=== PATIENT | male | born 1980 | race Caucasian/White ===

== ENCOUNTER 2018-08-10 04:57 | Emergency (ER) | payer BC, SELFPAY ==
[2018-08-10 04:59] VITALS: BP 131/80; PULSE 101; RESP 13; TEMP 36.7; O2SAT 100; BMI 41.5
[2018-08-10 05:03] VITALS: O2SAT 99
--- NOTE | 2018-08-10 05:11 | EKG12_ITS ---
Test Reason : SOB Blood Pressure : / mmHG Vent. Rate : 080 BPM Atrial Rate : 080 BPM P-R Int : 140 ms QRS Dur : 082 ms QT Int : 344 ms P-R-T Axes : 004 -04 037 degrees QTc Int : 396 ms Normal sinus rhythm with sinus arrhythmia Poor R wave progression Confirmed by ELIDIA TA, DEVI ([id number]), staff editor BLANCHE RIVERA ([id number]) on 08/12/2018 1:21:54 PM Referred By: YOAN Confirmed By:DEVI BRENNER MD
--- NOTE | 2018-08-10 05:11 | RAD_ITS ---
STUDY: X-RAY CHEST REASON FOR EXAM: Male, 38 years old. Sudden onset of shortness of breath this morning. TECHNIQUE: PA and lateral chest. COMPARISON: None. FINDINGS: The lungs are clear and expanded. There is no demonstrated pleural abnormality. Normal size heart. Normal mediastinum and joshua. Normal visualized pulmonary arteries. Normal visualized aortic arch and descending thoracic aorta. Normal visualized thoracic spine. Normal visualized ribs, clavicles, and shoulders. There is no demonstrated abnormality of the visualized soft tissue structures of the upper abdomen. RAD/Chest PA and Lateral IMPRESSION: Normal x-ray examination of the chest. Electronically Signed: Justino Xie MD at 5:46 EDT , Service support ,
[2018-08-10 05:30] LABS: Absolute Lymphocyte Count 3.22 X10^3/ul (0.83-4.51); Absolute Neutrophil Count 5.2 X10^3/uL (2.0-7.7); Basophil# 0.02 X10^3/uL; Basophil% 0.2 % (0-1); Eosinophil# 0.16 X10^3/uL; Eosinophils% 1.7 % (0-5); Hematocrit 48.1 % (40-54); Hemoglobin 15.7 g/dl (13.0-16.5); Lymphocyte # 3.22 X10^3/ul (4.0); Lymphocyte % 33.9 % (19-41); Mean Corp Hgb Conc 32.6 g/gl (32-36); Mean Corpuscular Hgb 28.6 pg (27.0-32.0); Mean Corpuscular Volume 87.8 fL (80-94); Mean Platelet Vol. 11.7 fl (6.2-12.0); Monocyte# 0.88 X10^3/uL; Monocyte% 9.3 % (0-10); Neutrophil # 5.19 X10^3/uL (2.7-7.7); Neutrophil % 54.7 % (47-70); Platelet Count 240 K/mm3 (150-450); RBC Distribution Width CV 13.5 % (11.6-14.6); RBC Distribution Width SD 43.4 fl (35.1-43.9); Red Blood Count 5.48 M/mm3 (4.6-6.2); White Blood Count 9.5 K/mm3 (4.4-11.0)
[2018-08-10 05:32] LABS: POSITIVE COUNT NO; POSITIVE DIFFERENTIAL NO; POSITIVE MORPHOLOGY NO
[2018-08-10 05:35] LABS: Anion Gap 7 (5-15); BUN 19 mg/dL (7-18); BUN/Creat Ratio 17.9 RATIO (10-20); Calcium,Total 9.3 mg/dL (8.5-10.1); Chloride 106 mmol/L (98-107); Creatinine, Serum 1.06 mg/dL (0.70-1.30); EST Glomerular Filtration Rate 82 mL/min (>60); Est Glom Filt Rate - Afr Amer 100 mL/min (>60); Glucose 146 mg/dL (74-106); Potassium 3.9 mmol/L (3.5-5.1); Sodium Level 140 mmol/L (136-145)
--- NOTE | 2018-08-10 05:48 | CT_ITS ---
STUDY: CTA CHEST REASON FOR EXAM: Male, 38 years old. Shortness of breath while driving to work this morning. RADIATION DOSAGE (If Supplied By Facility): CTDIvol = ( 20.05 ) mGy, DLP = ( 676.42 ) mGycm TECHNIQUE: The examination was performed with the intravenous administration of 100ML ml of Isovue 370 contrast material. Post-processing of the angiographic images was performed, with multiplanar reformation and 3D reconstruction. Individualized dose optimization techniques were used for this CT. COMPARISON: Chest x-ray August 10, 2018. FINDINGS: Normal enhancement of the main pulmonary artery and right and left pulmonary arteries. Normal enhancement of the bilateral peripheral pulmonary arteries. There is no demonstrated pulmonary embolism. Normal thoracic aorta and visualized great vessels. There is no demonstrated aortic dissection. Normal heart and pericardium. Normal mediastinum. Normal hilar regions. Normal visualized trachea and bronchi. The lungs are well expanded. Normal pulmonary parenchyma. Normal pleura. Normal chest wall structures. Normal osseous structures. Normal visualized upper abdomen. CT/CTA Chest W/WO Contrast IMPRESSION: Normal CTA chest examination, without a demonstrated pulmonary embolism or arterial dissection. Electronically Signed: Justino Xie MD at 6:30 EDT , Service support ,
--- NOTE | 2018-08-10 06:01 | ED.VISSUMM ---
- ER Visit Summary Date of Service: 08/10/18 Chief Complaint: Shortness of breath History of Present Illness: The patient is a 38 M who reports sudden onset shortness of breath. About 45 minutes prior to presentation he was driving to work. He suddenly felt short of breath and dizzy as if he may pass out. He became diaphoretic. This is never occurred before. He does drive 45 minutes regularly for work but otherwise denies recent travel or immobilization. No prior DVT or pulmonary embolism. He is not a smoker. No history of cancer. He denies any chest pain or cough. He denies recent illness. No fevers nausea vomiting or diarrhea. He denies any extremity pain or swelling. He denies any active medical problems, no diabetes hypertension hyperlipidemia. Physical Examination: Heart rate 101 vitals otherwise normal Moist mucous membranes Heart regular rhythm slightly tachycardic Lungs are clear without rales rhonchi or wheezes Abdomen soft Extremities nontender without edema 2+ radial pulses Alert Normal affect Test Results: EKG shows normal sinus rhythm at a rate of 80. Two-view chest x-ray is normal. CBC BMP unremarkable and troponin is negative. CTA shows no evidence of pulmonary embolism or aortic dissection. Emergency Department Course and Treatment: Patient has maintained stable vitals during his course here. Initial workup included laboratory studies EKG and chest x-ray. This did not give an explanation of the patient's symptoms. Given his frequent driving for work I obtained a CTA of the chest to rule out pulmonary embolism. Patient's shortness of breath and dizziness while driving could also potentially be related to carbon monoxide. A carbon monoxide level has been sent but if this is normal I believe the patient can be discharged to follow-up outpatient. All questions answered bedside. He does feel improved on reevaluation. Treatment Plan: [] Disposition: Discharge pending carbon monoxide level Impression: Near syncope Shortness of breath This note was generated with [employer] dictation software. It may contain incorrect words, spelling, and punctuation that were not noted in review of the chart prior to signing ED Disposition - Plan for ED Patient: Chief Complaint: Shortness of Breath Referrals: [facility] Doctor,Out of [Primary Care Provider] -
[2018-08-10 06:28] VITALS: BP 124/79; PULSE 98; RESP 11; O2SAT 96
--- NOTE | 2018-08-10 06:57 | ED.DEP ---
ED Disposition - Plan for ED Patient: Chief Complaint: Shortness of Breath Instructions: ED Dizziness UKO, ED Dyspnea Shortness of Breath Referrals: [facility] Doctor,Out of [Primary Care Provider] -
[2018-08-10 07:10] LABS: Carboxyhemoglobin Frac (CO) 1.3 % (0.0-1.5)
[2018-08-10 07:30] VITALS: BP 117/90; PULSE 88; RESP 18; O2SAT 99
--- NOTE | 2018-08-11 10:33 | CM.ED ---
ED CALLBACK: Follow-up call placed to patient. Patient states he is feeling some better. He denies shortness of breath. He states he does have a headache. He tells me that he spoke with his PCP, in [place], and they told him to make an appt with them if his headache persists. Patient denies and needs or questions at this time.
== END 2018-08-10 07:31 | disposition home or self-care (01) ==
PROVIDERS: Emergency Provider Emergency Medicine
DX: R06.02 Shortness of breath (principal); R55 Syncope and collapse
CPT/HCPCS: 71046; 71275; 80048; 82375; 84484; 85025; 93005; 99284; Q9967; A4216

== ENCOUNTER 2021-02-19 09:34 | Emergency (ER) | payer BC, SELFPAY ==
[2021-02-19 09:35] VITALS: BP 166/106; PULSE 107; RESP 14; TEMP 36.5; O2SAT 98; BMI 39.7
--- NOTE | 2021-02-19 09:48 | EKG12_ITS ---
Test Reason : SOB Blood Pressure : / mmHG Vent. Rate : 090 BPM Atrial Rate : 090 BPM P-R Int : 142 ms QRS Dur : 078 ms QT Int : 340 ms P-R-T Axes : 039 000 024 degrees QTc Int : 415 ms Normal sinus rhythm with sinus arrhythmia Normal ECG Confirmed by ALISON TA, CURTIS ([id number]), editor book CESAR CHRISTIE ([id number]) on 02/24/2021 1:21:46 PM Referred By: MR Confirmed By:CURTIS ROSAS MD
--- NOTE | 2021-02-19 09:48 | RAD_ITS ---
STUDY: X-RAY CHEST REASON FOR EXAM: Male, 40 years old. Sob TECHNIQUE: Single AP portable view of the chest. COMPARISON: Comparison is made with prior study 08/10/2018. FINDINGS: EKG electrodes are seen. The lungs are clear and expanded. There is no demonstrated pleural abnormality. Normal size heart. Normal mediastinum and joshua. Normal visualized pulmonary arteries. Normal visualized aortic arch and descending thoracic aorta. Normal visualized thoracic spine. Normal visualized ribs, clavicles, and shoulders. There is no demonstrated abnormality of the visualized soft tissue structures of the upper abdomen. RAD/Chest 1 View (Portable) IMPRESSION: Normal x-ray examination of the chest. Electronically Signed: Issa Rene MD at 10:43 EDT , Service support ,
--- NOTE | 2021-02-19 09:50 | EDS_ITS ---
HPI History of Present Illness Chief Complaint: Shortness of Breath Narrative Narrative: Patient presents with shortness of breath that started a few hours ago, he was at work. He endorses some indigestion with this. He has no fever chills cough or congestion. He has no back pain or tearing sensation. He has no pleuritic component. There is no lower extremity edema or calf pain. No DVT or PE risk factors. [facility] Medical History (Updated 02/19/21 @ 10:05 by Diana Posadas RN) Diabetes GERD (gastroesophageal reflux disease) Home Medications esomeprazole magnesium [Nexium 24Hr] 20 mg PO DAILY 08/10/18 [History Last Taken Unknown] Allergy/AdvReac Type Severity Reaction Status Date / Time No Known Allergies Allergy Verified 02/19/21 09:35 Social History Smoking Status: Current every day smoker ROS ROS ED ROS Narrative Past medical history: Diabetes Medications: Metformin Social history: Smoker Family history: Noncontributory Review of systems: All systems negative except as indicated General: No fever Eyes: No visual changes ENT: No upper airway congestion, normal voice Neck: No neck pain Cardiovascular: No chest pain Respiratory: Shortness of breath as in HPI Gastrointestinal: Some epigastric pain and indigestion Genitourinary: No dysuria Musculoskeletal: Denies myalgias no difficulty with ambulation Skin: No rash Neurological: No memory loss, confusion or any focal weakness Psych: No recent behavioral changes Hematologic: No easy bleeding or easy bruising EXAM Physical Exam Narrative Exam Narrative: Physical exam General: Well nourished, Well developed, No Acute Distress. BMI of 39.7 Head: Normocephalic, Atraumatic Eyes: Conjunctiva not pale ENT: Moist mucous membranes Neck: Supple, Nontender, No lymphadenopathy Cardiovascular: Regular rate, Regular rhythm Respiratory: No distress, CTA bilaterally. He is speaking in full sentences he does not appear in respiratory distress. He is not tachypneic. I do not hear any wheezing. Abdomen: Soft, Nontender, Nondistended. I cannot reproduce the epigastric pain indigestion. Back: Nontender, Normal Inspection. Negative for: CVA tenderness Extremities: Nontender, No edema Skin: Normal color, No rash Neurological: Alert, Normal Strength, Normal Sensation Psychological: Normal affect Const Vital Signs: 02/19/21 09:35 02/19/21 10:04 Temperature 97.7 F L Temperature Source Temporal Pulse Rate 107 H 91 Respiratory Rate 14 14 Respiratory Effort Short of Breath Respiratory Depth Normal Respiratory Pattern Normal Blood Pressure 166/106 H 130/86 H Blood Pressure Mean 126 100 Pulse Ox 98 97 Oxygen Delivery Method Room Air Room Air MDM MDM MDM Narrative Medical decision making narrative: Patient has a heart score of 3. He has 2 - troponins, his chief complaint is shortness of breath and indigestion. There is no evidence of PE. There is no evidence of pneumonia. He appears well. I will discharge him with reassurance he has normal vitals he was observed in ED and seems to have improved on its own. Lab Data Labs: Laboratory Results - last 24 hr 02/19/21 02/19/21 02/19/21 10:00 10:00 10:00 WBC 10.9 RBC 5.56 Hgb 16.0 Hct 48.6 MCV 87.4 MCH 28.8 MCHC 32.9 RDW Std Deviation 41.5 RDW Coeff of Val 12.9 Plt Count 262 MPV 11.3 Immature Gran % (Auto) 0.400 Neut % (Auto) 73.1 H Lymph % (Auto) 19.6 [place] % (Auto) 5.2 Eos % (Auto) 1.3 Baso % (Auto) 0.4 Absolute Neuts (auto) 8.0 H Absolute Lymphs (auto) 2.13 Nucleated RBC % 0 D-Dimer Quant (PE/DVT) 0.37 Sodium 139 Potassium 3.8 Chloride 108 H Carbon Dioxide 25.0 Anion Gap 6 BUN 17 Creatinine 1.04 Estim Creat Clear Calc 80.49 Est GFR (MDRD) Af Amer 101 Est GFR (MDRD) Non-Af 83 BUN/Creatinine Ratio 16.3 Glucose 130 H Calcium 9.1 Total Bilirubin 0.20 AST 24 ALT 42 Alkaline Phosphatase 71 Troponin I < 0.015 B-Natriuretic Peptide Total Protein 7.6 Albumin 3.9 Globulin 3.7 Albumin/Globulin Ratio 1.1 02/19/21 02/19/21 10:00 12:00 WBC RBC Hgb Hct MCV MCH MCHC RDW Std Deviation RDW Coeff of Val Plt Count MPV Immature Gran % (Auto) Neut % (Auto) Lymph % (Auto) [place] % (Auto) Eos % (Auto) Baso % (Auto) Absolute Neuts (auto) Absolute Lymphs (auto) Nucleated RBC % D-Dimer Quant (PE/DVT) Sodium Potassium Chloride Carbon Dioxide Anion Gap BUN Creatinine Estim Creat Clear Calc Est GFR (MDRD) Af Amer Est GFR (MDRD) Non-Af BUN/Creatinine Ratio Glucose Calcium Total Bilirubin AST ALT Alkaline Phosphatase Troponin I < 0.015 B-Natriuretic Peptide 4.6 Total Protein Albumin Globulin Albumin/Globulin Ratio Radiography Diagnostic Testing: Radiology Impression Chest X-Ray 02/19/21 09:48 IMPRESSION: Normal x-ray examination of the chest. Electronically Signed: Issa Rene MD at 10:43 EDT , Service support , Chest x-ray read by me and the radiologist does not show any pneumonia, normal cardiac silhouette Discharge Plan Triage Chief Complaint: Shortness of Breath ED Provider: Zelalem Alvarado Dx/Rx/DC Orders Prescriptions: No Action esomeprazole magnesium [Nexium 24HR] 20 MG Capsule.Dr 20 mg PO DAILY RF: 0 Primary Care Provider: Farshad Dsouza
[2021-02-19 10:04] VITALS: BP 130/86; PULSE 91; RESP 14; O2SAT 97
[2021-02-19 10:07] LABS: Absolute Lymphocyte Count 2.13 X10^3/uL (0.83-4.51); Basophil# 0.04 X10^3/uL; Basophil% 0.4 % (0-1); Eosinophil# 0.14 X10^3/uL; Eosinophils% 1.3 % (0-5); Hematocrit 48.6 % (40-54); Lymphocyte # 2.13 X10^3/ul (0.83-4.51); Lymphocyte % 19.6 % (19-41); Mean Corp Hgb Conc 32.9 g/dL (32-36); Mean Corpuscular Hgb 28.8 pg (27.0-32.0); Mean Corpuscular Volume 87.4 fL (80-94); Mean Platelet Vol. 11.3 fl (6.2-12.0); Monocyte# 0.56 X10^3/uL; Monocyte% 5.2 % (0-10); NRBC Flagged by Analyzer 0 % (0-5); Neutrophil # 7.96 X10^3/uL (2.7-7.7); Neutrophil % 73.1 % (47-70); Platelet Count 262 K/mm3 (150-450); RBC Distribution Width CV 12.9 % (11.6-14.6); RBC Distribution Width SD 41.5 fl (35.1-43.9); Red Blood Count 5.56 M/mm3 (4.6-6.2); White Blood Count 10.9 K/mm3 (4.4-11.0)
[2021-02-19 10:17] LABS: D-Dimer Quantitative (DVT/PE) 0.37 FEU/ug/m (0.27-0.49)
[2021-02-19 10:22] LABS: ALB/GLOB Ratio 1.1 RATIO (0.9-2.4); AST(SGOT) 24 U/L (15-37); Alanine Aminotransfer ALT/SGPT 42 U/L (16-61); Albumin, Serum 3.9 g/dL (3.2-5.0); Alkaline Phosphatase 71 U/L (45-117); Anion Gap 6 (5-15); BUN 17 mg/dL (7-18); BUN/Creat Ratio 16.3 RATIO (10-20); Calcium,Total 9.1 mg/dL (8.5-10.1); Chloride 108 mmol/L (98-107); Creatinine, Serum 1.04 mg/dL (0.70-1.30); EST Glomerular Filtration Rate 83 mL/min (>60); Est Glom Filt Rate - Afr Amer 101 mL/min (>60); Estimated Creatinine Clearance 80.49 ml/min; Globulin 3.7 g/dL (2.2-4.2); Glucose 130 mg/dL (74-106); Potassium 3.8 mmol/L (3.5-5.1); Protein, Total 7.6 g/dL (6.4-8.2); Sodium Level 139 mmol/L (136-145)
[2021-02-19 10:27] LABS: BNP,B-Type NATRIURETIC PEPTIDE 4.6 pg/mL (0-100)
[2021-02-19 12:52] VITALS: BP 134/74; PULSE 81; RESP 16; O2SAT 98
== END 2021-02-19 12:53 | disposition home or self-care (01) ==
LOC: ED 10:34
PROVIDERS: Emergency Provider Emergency Medicine; PCP Family Medicine
DX: R06.02 Shortness of breath (principal); F17.200 Nicotine dependence, unspecified, uncomplicated
CPT/HCPCS: 71045; 80053; 83880; 84484; 85025; 85379; 87426; 93005; 99284; A4216